=== PATIENT | male | born 1940 | race African-American/Black ===

== ENCOUNTER 2017-05-18 06:35 | Emergency (ER) | payer MEDICARE, OTHER ==
[~2017-05-18] VITALS: Ht 172.7 cm; Wt 73.0 kg
[2017-05-18 06:35] VITALS: BP 160/92
== END 2017-05-18 12:02 | disposition home or self-care (01) ==
LOC: ER 07:35
DX: M25.512 Pain in left shoulder (principal); M54.2 Cervicalgia; M79.1 Myalgia; E78.00 Pure hypercholesterolemia, unspecified; I10 Essential (primary) hypertension; V49.9XXA Car occupant (driver) (passenger) injured in unspecified traffic accident, initial encounter; Y93.89 Activity, other specified; Y92.89 Other specified places as the place of occurrence of the external cause; Y99.8 Other external cause status
CPT/HCPCS: 99282

== ENCOUNTER 2018-11-02 08:01 | Emergency (ER) | payer MEDICARE, OTHER, BC ==
[~2018-11-02] VITALS: Ht 172.7 cm; Wt 78.0 kg
[2018-11-02 08:54] LABS: BASOPHILS % 0.7 % (0.0-2.0); EOSINOPHILS % 4.4 % (0.0-5.0); HEMATOCRIT. 46.3 % (42.0-52.0); LYMPHOCYTES % 25.5 % (20.0-50.0); MEAN CORPUSCULAR HEMOGLOBIN 26.9 pg (28.0-32.0); MEAN CORPUSCULAR VOLUME 82.7 fL (80.0-94.0); MEAN PLATELET VOLUME 9.3 fl (7.4-10.4); MONOCYTES % 10.3 % (2.0-8.0); NEUTROPHILS % 59.1 % (40.0-76.0); PLATELET 160 x1000/uL (130-400); RED CELL DISTRIBUTION WIDTH 14.4 % (11.6-14.6)
[2018-11-02 08:56] LABS: CHLORIDE 106 mEq/L (98-107)
[2018-11-02 08:58] LABS: INR 1.1; PROTHROMBIN TIME 11.2 sec (9.6-11.0)
[2018-11-02 09:35] LABS: CLARITY URINE CLEAR (CLEAR); COLOR URINE YELLOW (YELLOW); KETONES URINE NEGATIVE (NEGATIVE); LEUKOCYTE ESTERASE URINE NEGATIVE (NEGATIVE); NITRITE URINE NEGATIVE (NEGATIVE); OCCULT BLOOD URINE NEGATIVE (NEGATIVE); PROTEIN URINE NEGATIVE (NEGATIVE); SPECIFIC GRAVITY URINE 1.012 (1.005-1.030)
[2018-11-02] MEDS ORDERED: ASPIRIN 325MG TABLET PO ONE (10:15)
[2018-11-02 10:28] VITALS: BP 145/74
== END 2018-11-02 11:26 | disposition home or self-care (01) ==
LOC: ER 08:01 → CANBEDREQ 10:54 → ER 11:26
DX: R42 Dizziness and giddiness (principal); I10 Essential (primary) hypertension; E78.00 Pure hypercholesterolemia, unspecified
CPT/HCPCS: 36415; 71045; 84484; 93005; 99284